=== PATIENT | female | born 1985 | race Caucasian/White ===

== ENCOUNTER 2025-03-16 20:28 | Emergency (ER) | payer OTHER, SELFPAY ==
[2025-03-16] VITALS (7 sets, daily range): BP systolic 128–142; BP diastolic 59–90; PULSE 98–115; RESP 17; TEMP 36.8; O2SAT 98–100; BMI 24.9
[2025-03-16 21:37] LABS: Add Manual Diff / Slide Review NO; Hematocrit 36.3 % (36-46); Hemoglobin 12.4 g/dL (12.0-16.0); Lymphocytes Absolute Auto 1300 /uL (1100-4500); Mean Corpuscular HGB Conc 34.1 % (30-36); Mean Corpuscular Hemoglobin 28.0 PG (26-34); Mean Corpuscular Volume 82.0 fL (80-100); Platelet Count 265 X10^3/uL (150-400)
[2025-03-16 21:46] LABS: Lactate (Lactic Acid) 1.0 mmol/L (0.7-2.1)
[2025-03-16 21:49] LABS: Alanine Aminotransferase 17 IU/L (<35); Albumin 4.2 g/dL (3.5-5.0); Albumin Globulin Ratio 1.2 (1.0-2.8); Alkaline Phosphatase 75 U/L (38-126); Blood Urea Nitrogen 17 mg/dL (7-17); Calcium 9.1 mg/dL (8.4-10.2); Carbon Dioxide 28 mmol/L (22-32); Chloride 100 mmol/L (98-107); Estimated Glomerular Filt Rate > 60 mL/min (>60); Globulin 3.4 g/dL (1.7-4.1); Glucose 96 mg/dL (70-99); HEMOLYSIS < 15 (0-50); Potassium 3.9 mmol/L (3.4-5.1); Sodium 137 mmol/L (137-145); Total Protein 7.6 g/dL (6.3-8.2)
[2025-03-16 22:03] LABS: Procalcitonin 0.036 ng/mL (<0.5)
--- NOTE | 2025-03-16 23:35 | ED.WOUNDLAC ---
HPI - Wound/Laceration General Chief Complaint: Wound/Laceration Stated Complaint: staf inection in Rt foot Time Seen by Provider: 03/16/25 22:34 Source: patient Mode of arrival: Ambulatory History of Present Illness HPI narrative: 39-year-old female was wearing sandals, developed a skin sore and blister dorsum of the right foot, increasing redness since then over the last 2 days, scant drainage from the form a blister site, painful to bear weight on the end of the foot. Currently not on any oral antibiotics. First visit for this problem. No redness or streaking to the remainder of the foot or up the foreleg. No fevers or chills. No puncture or plantar wound recalled. Related Data Previous Rx's ?Medication ?Instructions ?Recorded cephalexin 500 mg capsule 500 mg PO QID 7 days #28 caps 03/17/25 sulfamethoxazole 800 1 tab PO BID #14 tabs 03/17/25 mg-trimethoprim 160 mg tablet (Bactrim DS) Allergies Allergy/AdvReac Type Severity Reaction Status Date / Time No Known Drug Allergies Allergy Verified 03/16/25 20:39 Patient History Social History Smoking Status: Current every day smoker Smoking Status: Current every day smoker Exam Narrative Exam Narrative: GENERAL: Well-developed patient, in mild distress. HEAD: Atraumatic. Normocephalic. EYES: Pupils equal round and reactive. Extraocular motions intact. No scleral icterus. No injection or drainage. ENT: Nose without bleeding, purulent drainage. Throat without erythema, tonsillar hypertrophy or exudate. Airway patent. NECK: Trachea midline. Non tender CARDIOVASCULAR: Regular rate and rhythm without murmurs, gallops, or rubs. RESPIRATORY: Clear to auscultation. Breath sounds equal bilaterally. No wheezes, rales, or rhonchi. GASTROINTESTINAL: Abdomen soft, non-tender, nondistended. EXTREMITIES: Redness and swelling to the distal foot, with sensation of redness demarcating along the MCP line, extending 2 cm proximally, over the 1st MTP region there is a small shallow ulcer, with expressible pus. Perimeter of erythema marked with pen-line. BACK: Nontender without deformity or crepitance. No flank tenderness. NEURO: AOx3. Motor functions grossly nonfocal. SKIN: No rash or erythema of visible areas Initial Vital Signs Initial Vital Signs: Vital Signs Temperature 98.2 F 03/16/25 20:39 Pulse Rate 115 H 03/16/25 20:39 Respiratory Rate 17 03/16/25 20:39 Blood Pressure 128/59 L 03/16/25 20:39 Pulse Oximetry 98 03/16/25 20:39 Oxygen Delivery Method Room Air 03/16/25 20:39 Course Orders Ordered: ED Orders 03/16/25 21:05 Lactate (Lactic Acid) Stat 03/16/25 21:15 Blood Culture Stat CBC Auto Diff [Complete Blood Count AUTO DIFF] Stat CMP [Comprehensive Metabolic Panel] Stat CRP [C-Reactive Protein Quant] Stat Erythrocyte Sedimentation Rate Stat Procalcitonin Stat 03/17/25 00:05 Wound Culture and Gram Stain Stat Discontinued Medications Hydrocodone Bitart/Acetaminophen (Hydrocodone/Acet 5/325 Prepack) 1 bottle MISC DIRECTED ONE Stop: 03/17/25 01:14 Last Admin: 03/17/25 01:29 Dose: 1 bottle Documented By: ANNABELLE Hydrocodone Bitart/Acetaminophen (Hydrocodone/Acet 5/325 Tablet) 1 tab PO NOW ONE Stop: 03/17/25 01:24 Last Admin: 03/17/25 01:29 Dose: 1 tab Documented By: ANNABELLE Cefazolin Sodium (Cephalexin 250 Mg Cap Prepack) 1 bottle MISC DIRECTED ONE Stop: 03/17/25 01:14 Last Admin: 03/17/25 01:29 Dose: 500 mg Documented By: ANNABELLE Vancomycin HCl 2,000 mg/ (Sodium Chloride) 500 mls @ 250 mls/hr IV NOW ONE Stop: 03/17/25 00:09 Last Infusion: 03/17/25 03:42 Dose: Infused Documented By: Admin: 03/17/25 01:16 Dose: 250 mls/hr Documented By: ANNABELLE Ceftriaxone Sodium 1,000 mg/ (Sodium Chloride) 100 mls @ 200 mls/hr IV NOW ONE Stop: 03/17/25 00:09 Last Infusion: 03/17/25 01:31 Dose: Infused Documented By: Admin: 03/17/25 00:30 Dose: 200 mls/hr Documented By: ANNABELLE Nicotine (Nicotine 7 Mg Patch) 7 mg TOP NOW ONE Stop: 03/17/25 01:17 Last Admin: 03/17/25 01:34 Dose: 7 mg Documented By: ANNABELLE Trimethoprim/Sulfamethoxazole (Trimeth/Sulfa 160/800 (Ds) Tablet) 1 tab PO NOW ONE Stop: 03/17/25 01:16 Last Admin: 03/17/25 01:29 Dose: 1 tab Documented By: ANNABELLE Vital Signs Vital signs: Vital Signs - 8 hr 03/16/25 22:00 03/16/25 22:00 03/16/25 22:30 Pulse Rate 103 H 103 H Blood Pressure 129/74 Pulse Oximetry 100 100 Oxygen Delivery Method 03/16/25 22:30 03/16/25 23:00 03/16/25 23:00 Pulse Rate 98 H Blood Pressure 129/80 141/90 H Pulse Oximetry 99 Oxygen Delivery Method 03/16/25 23:30 03/16/25 23:30 03/17/25 00:00 Pulse Rate 100 H 106 H Blood Pressure 142/88 H Pulse Oximetry 100 100 Oxygen Delivery Method 03/17/25 00:00 03/17/25 00:30 03/17/25 00:30 Pulse Rate 93 H Blood Pressure 135/79 133/75 Pulse Oximetry 100 Oxygen Delivery Method 03/17/25 01:00 03/17/25 01:00 03/17/25 01:30 Pulse Rate 87 Blood Pressure 128/77 132/76 Pulse Oximetry 99 Oxygen Delivery Method 03/17/25 01:30 03/17/25 02:00 03/17/25 02:00 Pulse Rate 93 H 96 H Blood Pressure 122/72 Pulse Oximetry 99 98 Oxygen Delivery Method 03/17/25 02:30 03/17/25 02:30 03/17/25 03:00 Pulse Rate 97 H Blood Pressure 127/75 126/71 Pulse Oximetry 98 Oxygen Delivery Method 03/17/25 03:00 03/17/25 03:30 03/17/25 03:30 Pulse Rate 98 H 95 H Blood Pressure 118/71 Pulse Oximetry 98 98 Oxygen Delivery Method 03/17/25 04:00 03/17/25 04:00 Pulse Rate 92 H Blood Pressure 120/65 Pulse Oximetry 100 Oxygen Delivery Method Room Air MDM - Wound/Laceration Lab Data Attestation: I reviewed the patient's lab results. Lab results narrative: White blood cell count 5800, hemoglobin 12.4, platelets adequate. Glucose 96. Normal renal function, carbon dioxide, electrolytes. Liver functions normal. Lactate CRP procalcitonin not elevated. 03/16/25 21:15 03/16/25 21:15 Labs: Lab Results 03/16/25 03/16/25 Range/Units 21:05 21:15 WBC 5.8 (4.5-11.0) X10^3/uL RBC 4.43 (4.0-5.2) X10^6/uL Hgb 12.4 (12.0-16.0) g/dL Hct 36.3 (36-46) % MCV 82.0 (80-100) fL MCH 28.0 (26-34) PG MCHC 34.1 (30-36) % RDW 14.9 H (11.6-14.8) % Plt Count 265 (150-400) X10^3/uL Neut % (Auto) 68.1 (50-75) % Lymph % (Auto) 22.7 L (25-40) % Ford % (Auto) 6.2 (3-14) % Eos % (Auto) 2.5 (2-4) % Baso % (Auto) 0.5 (0-2) % Neut # (Auto) 4000 (0718-3478) /uL Lymph # (Auto) 1300 (7286-2391) /uL Ford # (Auto) 400 (0-900) /uL Eos # (Auto) 100 (0-450) /uL Baso # (Auto) 0 (0-100) /uL ESR 22 H (0-20) MM/HR Sodium 137 (137-145) mmol/L Potassium 3.9 (3.4-5.1) mmol/L Chloride 100 (98-107) mmol/L Carbon Dioxide 28 (22-32) mmol/L BUN 17 (7-17) mg/dL Creatinine 0.72 (0.52-1.04) mg/dL Estimated GFR > 60 (>60) mL/min BUN/Creatinine Ratio 23.6 H (6-22) Glucose 96 (70-99) mg/dL Lactate 1.0 (0.7-2.1) mmol/L Calcium 9.1 (8.4-10.2) mg/dL Total Bilirubin 0.2 (0.2-1.3) mg/dL AST 24 (14-36) IU/L ALT 17 (<35) IU/L Alkaline Phosphatase 75 (38-126) U/L C-Reactive Protein 1.3 H (<1.0) mg/dL Total Protein 7.6 (6.3-8.2) g/dL Albumin 4.2 (3.5-5.0) g/dL Globulin 3.4 (1.7-4.1) g/dL Albumin/Globulin Ratio 1.2 (1.0-2.8) Procalcitonin 0.036 (<0.5) ng/mL MDM Narrative Medical decision making narrative: 39-year-old female with footwear sandals related blistering right 1st MTP region recent days, now with 2 days of redness and swelling to the dorsal end of her foot, scant drainage of the original blister site, painful to bear weight on that painful foot. Afebrile, sirs screen negative. Screening labs sent. IV vancomycin, IV ceftriaxone. Lab data: White blood cell count 5800, hemoglobin 12.4, platelets adequate. Glucose 96. Normal renal function, carbon dioxide, electrolytes. Liver functions normal. Lactate CRP procalcitonin not elevated. Offered incision and drainage, declined. Offered CT further imaging for drainable fluid pocket, also declined. She would like to try antibiotics, which apparently worked on her left foot infection prior. Cephalexin oral antibiotic home pack, prescription also sent for 7 day course to her pharmacy on [facility]. Bactrim ds tablet dispensed to take in the morning, prescription Bactrim DS seven day oral course also sent to her pharmacy on [facility]. Home pack hydrocodone/APAP. Recheck advised in [facility] Tuesday. Discharged home with family. Discharge Plan Departure Patient Disposition: Home Clinical Impression: Abscess or cellulitis of foot Instructions: DI for Wound Infection Activity Restrictions/Additional Instructions: Right dorsal 1st metacarpal skin area redness and draining wound, from a sandal blister, with redness and swelling along the dorsal end of the foot, slight drainage from wound. We discussed CT imaging to look for deep space drainable fluid, declined for now. We discussed incision wider opening of the wound, declined for now. IV antibiotic vancomycin and IV antibiotic ceftriaxone given in the emergency department. Take further antibiotics cephalexin and Bactrim. Home pack of cephalexin provided for discharge. No home PACs exists for Bactrim, however a dose was dispensed to be able to take in the morning. Fill prescriptions on Tuesday for further cephalexin and Bactrim. Recheck in [facility] advised Tuesday, to check on wound healing progress. Keep elevated. Return earlier to this/nearest emergency department for any change worsening symptoms or any concerns prior. Prescriptions: New cephalexin 500 mg capsule 500 mg PO QID 7 Days Qty: 28 0RF sulfamethoxazole-trimethoprim [Bactrim DS] 800-160 mg tablet 1 tab PO BID Qty: 14 0RF Stand Alone Forms: Patient Portal/API
[2025-03-17] VITALS (9 sets, daily range): BP systolic 118–135; BP diastolic 65–79; PULSE 87–106; O2SAT 98–100
[2025-03-17] MEDS: VANCOMYCIN 2,000 MG in SODIUM CHLORIDE 0.9% 500 ML 250 MG IV (01:16)
[2025-03-17] MEDS: TRIMETH/SULFA 160/800 (DS) TABLET 1 TAB PO (01:29)
[2025-03-17] MEDS: cephALEXin 250 MG CAP PREPACK 1 BOTTLE MISC (01:29)
[2025-03-17] MEDS: HYDROCODONE/ACET 5/325 PREPACK 1 BOTTLE MISC (01:29)
[2025-03-17] MEDS: HYDROCODONE/ACET 5/325 TABLET 1 TAB PO (01:29)
[2025-03-17] MEDS: NICOTINE 7 MG PATCH TOP (01:34)
== END 2025-03-17 04:35 | disposition home or self-care (01) ==
PROVIDERS: Emergency Provider Emergency Medicine
DX: L03.115 Cellulitis of right lower limb (principal); L02.611 Cutaneous abscess of right foot
CPT/HCPCS: 36415; 80053; 83605; 84145; 85025; 85651; 86140; 87040; 87070; 87075; 87077; 87147; 87186; 87205; 96365; 96366; 96367; 99284; J0696